=== PATIENT | male | born 2000 | race Two or more races ===

== ENCOUNTER 2020-01-18 21:24 | Emergency (ER) | payer SELFPAY ==
[~2020-01-18] VITALS: Ht 167.6 cm; Wt 68.0 kg
[2020-01-18] MEDS ORDERED: LORAZEPAM 1MG TABLET PO ONE (22:30)
[2020-01-18 23:32] VITALS: BP 124/86
== END 2020-01-18 23:33 | disposition home or self-care (01) ==
LOC: ER 21:24
DX: F41.9 Anxiety disorder, unspecified (principal); J45.909 Unspecified asthma, uncomplicated
CPT/HCPCS: 71045; 93005; 99283

== ENCOUNTER 2021-03-24 23:26 | Emergency (ER) | payer SELFPAY ==
[~2021-03-24] VITALS: Ht 167.6 cm; Wt 77.0 kg
[2021-03-25 00:29] LABS: BASOPHILS % 0.2 % (0.0-2.0); EOSINOPHILS % 4.6 % (0.0-5.0); HEMATOCRIT. 47.8 % (42.0-52.0); HEMOGLOBIN. 16.5 g/dL (14.0-18.0); LYMPHOCYTES % 10.6 % (20.0-50.0); MEAN CORPUSCULAR HEMOGLOBIN 29.5 pg (28.0-32.0); MEAN CORPUSCULAR VOLUME 85.7 fL (80.0-94.0); MEAN PLATELET VOLUME 8.3 fl (7.4-10.4); MONOCYTES % 9.9 % (2.0-8.0); NEUTROPHILS % 74.7 % (40.0-76.0); PLATELET 260 x1000/uL (130-400); RED BLOOD CELL COUNT 5.58 mill/uL (4.7-6.1)
[2021-03-25 00:35] LABS: CHLORIDE 107 mEq/L (98-107)
[2021-03-25] MEDS: ONDANSETRON HCL 4MG/2ML INJ IV STA (00:39)
[2021-03-25] MEDS: SODIUM CHLORIDE 0.9% 1,000 ML IV ONE (00:39)
[2021-03-25] MEDS: FAMOTIDINE 20MG/2ML VIAL IV STA (00:39)
[2021-03-25] MEDS: MAGNESIUM/ALUMINUM HYDROXIDE/SIMETHICONE 30ML UDC PO ONE (00:40)
[2021-03-25 00:48] LABS: CLARITY URINE CLEAR (CLEAR); COLOR URINE YELLOW (YELLOW); KETONES URINE NEGATIVE (NEGATIVE); LEUKOCYTE ESTERASE URINE NEGATIVE (NEGATIVE); NITRITE URINE NEGATIVE (NEGATIVE); OCCULT BLOOD URINE NEGATIVE (NEGATIVE); PH URINE 7.5 (4.5-8.0); PROTEIN URINE NEGATIVE (NEGATIVE); SPECIFIC GRAVITY URINE 1.023 (1.005-1.030); UROBILINOGEN URINE 0.2 E.U./dL (0.2-1.0)
[2021-03-25] MEDS ORDERED: TOPUD MT (03:22)
[2021-03-25] MEDS ORDERED: SIME125C MT (03:22)
[2021-03-25] MEDS ORDERED: LACT1CAP63 MT (03:36)
[2021-03-25 03:45] VITALS: BP 110/70
== END 2021-03-25 04:09 | disposition home or self-care (01) ==
LOC: ER 23:26
DX: R10.13 Epigastric pain (principal); R11.2 Nausea with vomiting, unspecified
CPT/HCPCS: 36415; 74176; 80053; 81003; 83690; 85025; 96361; 96374; 96375; 99285; J2405; J3490; J7030